=== PATIENT | male | born 1975 | race Caucasian/White ===

== ENCOUNTER 2017-01-28 15:25 | Emergency (ER) | payer OTHER ==
--- NOTE | 2017-01-28 17:59 | ED CLINICAL REPORT ---
Clinical Report - Physicians/Mid Levels [facility] [address] [place] [address] 01/28/2017 15:27 Patient: DANTE PLAZA Time Seen: 15:52. Arrived- By private vehicle. Historian- patient. HISTORY OF PRESENT ILLNESS Chief Complaint: RECTAL BLEEDING. This started today, has been mild and is now gone. The patient has not had dark stools, rectal pain or hard stools. He has had rectal bleeding (patient states that he was out in the [place] and had a bowel movement outside. Patient states he was concerned because he noticed that there was blood on the outside of the stool particularly on the top of the pile. He states this is never happened to him before; he did not have any painand has not been constipatedlately. He has no known history of hemorrhoids or diverticulitis. He has had no difficulty with his bowel movements recently.). No constipation, nausea, vomiting, diarrhea or abdominal pain. No recent travel. No known contact with a sick individual. Similar symptoms previously: None. Recent medical care: Not recently seen/assessed. REVIEW OF SYSTEMS No dizziness, fainting episodes, weakness, fever or blurred vision. No sore throat, epistaxis, cough, difficulty breathing or chest pain. No hematuria, skin rash, enlarged lymph nodes, chills or joint pain. No complaint of rectal foreign body. All systems otherwise negative, except as recorded above. PAST HISTORY Problems: Gastroesophageal Reflux Disease. Peptic Ulcer Disease. Arthritis. Additional Surgeries: ACL knee. Chest tube. Medications: Ibuprofen Oral. Omeprazole Oral. Allergies: Codeine. SOCIAL HISTORY Former smoker. Occasional alcohol use. No drug use. ADDITIONAL NOTES The nursing notes have been reviewed. PHYSICAL EXAM Vital Signs: 01/28/2017 15:44 BP: 134/89. HR: 84. RR: 17. O2 saturation: 96%. Temp: 98.5 F. Have been reviewed. Appearance: Alert. Oriented X3. No acute distress. Eyes: Pupils equal, round and reactive to light. Eyes normal inspection. ENT: Nose normal. Neck: Normal inspection. Neck supple. CVS: Normal heart rate and rhythm. Heart sounds normal. Pulses normal. Respiratory: No respiratory distress. Breath sounds normal. Abdomen: Soft and nontender. Back: Normal inspection. No CVA tenderness. Rectal: Trace heme-positive stool; hemoccult quality control microbiologist check passed. (POC test reference range: negative). No blood visibly present. Rectal exam nontender. Stool color normal. Skin: Skin warm and dry. Normal skin color. No rash. Normal skin turgor. Extremities: Extremities exhibit normal ROM. No lower extremity edema. Neuro: (Grossly intact.). LABS, X-RAYS, AND EKG Pulse Oximetry: 01/28/2017 15:44 O2 saturation: 96%. (FIO2 - room air). Interpretation: normal. PROGRESS AND PROCEDURES Course of Care: I did discuss with the patient that what he is describing sounds like a very distal, lower GI bleed. The blood is on the outside of the stool and is bright red blood which indicate that the bleeding is occurring at the very end of the GI tract. Patient has not had any pain in his anal area, which indicates that most likely the bleeding is due to an internal hemorrhoid. I did discuss with the patient that given that he has had only one episode, it would be acceptable to wait and see if he has any further episodes. If this becomes a recurrent problem, then patient may need either flexible sigmoidoscopy or colonoscopy. However, at this point, the patient is hemodynamically stable, there is no evidence of heavy GI bleeding, and patient is very unlikely to have lost a significant amount of blood. As such, no further diagnostic testing is indicated in the emergency department. Patient and are comfortable with this plan. Patient has a 30 spoke with his primary care physician about getting an endoscopy for possible peptic ulcer and the states she will also speak to the primary care physician about scheduling a colonoscopy. Patient and spouse counseled in person regarding the patient's stable condition, diagnosis and need for follow-up. Concerns were addressed. Old medical records reviewed. Disposition: Discharged. Condition: stable. CLINICAL IMPRESSION Rectal bleed consisting of bright red blood from internal hemorrhoids. INSTRUCTIONS Drink plenty of fluids. (There is no sign of a serious cause of your rectal bleeding. This may be a one-time episode, or you may have further episodes. If you do have further episodes, you should follow up for referral to a GI specialist, who can further evaluate you with colonoscopy.). Warnings: Further evaluation is necessary. GENERAL WARNINGS: Return or contact your physician immediately if your condition worsens or changes unexpectedly, if not improving as expected, or if other problems arise. Follow-up: Follow up with your doctor. Call for the next available appointment. Reason for referral: Follow up ER visit for GI bleeding. Understanding of the discharge instructions verbalized by patient and family. (Electronically signed by Shyla Almazan MD 01/28/2017 21:20)
--- NOTE | 2017-01-28 17:59 | ED NURSING NOTES ---
Clinical Report - Nurses [facility] [address] [place] [address] 01/28/2017 15:27 Patient: DANTE PLAZA TRIAGE Triage time 15:38 Jan 28 2017. Acuity: LEVEL 3. Chief Complaint: ABDOMINAL PAIN. 15:44 01/28/17. Alert. No acute distress. SEPSIS SCREEN: Sepsis Screen. Negative (no infection suspected/documented). FANTA COMA SCORE: [place] Coma Scale: 15- eyes open spontaneously (4); best verbal response- oriented x 4 (5); best motor response- obeys commands (6). --15:44 Jasmyne Lucas 15:44 01/28/17. BP: 134/89. HR: 84. RR: 17. O2 saturation: 96%. Temp: 98.5 F. Pain level now 310. --15:44 Jasmyne Lucas. Weight: 97.5 kg stated. Height/Length: 72 inches Per Patient. BMI: 29.2. --15:44 Jasmyne Lucas. Medications Omeprazole Oral. --15:39 Jasmyne Lucas Ibuprofen Oral. --15:40 Jasmyne Lucas. Medication/allergy information source: the patient. --15:44 Jasmyne Lucas. Allergies Codeine. --15:40 Jasmyne Lucas. History Arrived by private vehicle. Historian: patient. Accompanied by family. No primary care physician. This started today. 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 ( Pt reports having a bowel movement that had blood on top of it. Has a stomach ulcer and pain in the same area as when it was diagnosed.). He has had abdominal pain. No nausea, vomiting, diarrhea, constipation or fever. PAST MEDICAL HX: Gastroesophageal reflux disease. Peptic ulcer disease. No history of diabetes mellitus. No history of gallstones. Immunizations: up-to-date. SOCIAL HX: Former smoker, end date 2015 (vape). Occasional alcohol use. No drug use. No recent travel. No known contact with a sick individual. FALL RISK ASSESSMENT: Fall risk assessment completed. No fall risk identified. NUTRITIONAL RISK ASSESSMENT: The nutritional risk assessment revealed no deficiencies. FUNCTIONAL ASSESSMENT: Functional assessment: no impairments noted. LEARNING NEEDS ASSESSMENT: The learning needs assessment revealed no barriers. SKIN INTEGRITY ASSESSMENT: Skin integrity risk assessment completed. No skin integrity risk identified. --15:44 Jasmyne Lucas. PROBLEMS: Stomach ulcer. Arthritis. --15:41 Jasmyne Lucas. ADDITIONAL SURGERIES: ACL knee. Chest tube. --15:41 Jasmyne Lucas. Assessment The patient states feels the same. --15:44 Jasmyne Lucas. PHYSICAL ASSESSMENT 15:44 01/28/17. Ambulatory to room. GENERAL / NEURO / PSYCH: Alert. Oriented X 4. Appears in no acute distress. HEENT: Mucous membranes are pink. RESPIRATORY: Respirations not labored. CVS: Capillary refill less than 2 seconds. GI / : Abdomen soft and nontender. Bloody stool. SKIN: Skin is warm and dry. --15:44 Jasmyne Lucas. NURSING PROGRESS NOTES 15:45 01/28/17. The plan of care for this patient has been created. Head of bed elevated. Reassurance given. Two patient identifiers checked. Call light placed in reach. Patient placed in chair. Brakes of chair on. Patient ready for evaluation- chart flagged and ED physician and PA notified. --15:45 Jasmyne Lucas 16:06 01/28/2017 Site #1 started via IV in the right antecubital space with an 20g angiocath, with aseptic technique and good blood return; one attempt. Blood drawn: rainbow set. Labeled in the presence of the patient and sent to the lab. Saline lock flushed with 10 mL saline. --16:06 Magaly Yanes R.N. 16:06 01/28/17. ( Warm blanket applied.). --16:06 Magaly Yanes R.N. 16:01/28/17. Care transferred and report given (NANETTE Ziegler). --16:11 Jasmyne Lucas. DISPOSITION / DISCHARGE 18:17 01/28/2017 Site #1 removed upon discharge. Bandage applied. --18:19 Live Dsouza R.N. Departure time: 1816. Condition at departure: unchanged and stable. No learning barriers present. Discharge instructions provided and reviewed with the patient. Patient verbalized understanding. Written instructions provided in Cameroonian. The patient was discharged by the physician. He was discharged home and accompanied by spouse. He left the Emergency Department ambulatory and via private vehicle. Spouse driving. --18:22 Live Dsouza R.N. 18:16 01/28/17. BP: 132/97. HR: 84. RR: 16. O2 saturation: 99% on room air. Temp: 98.5 F (oral). Pain level now: 10/27. --18:22 Live Dsouza R.N. Locked/Released at 01/28/2017 20:09 by Karlie Littlejohn R.N.
--- NOTE | 2017-01-28 17:59 | ED ORDER SUMMARY ---
..... Patient: DANTE PLAZA OrderSheet [facility] VisitID: [id number] [address] [place] [address] 41y, M Registration Date/Time: 01/28/2017 ORDER SHEET Weight: 97.5 kg (stated) Allergies: Codeine GENERAL ORDERS: MEDICATION ORDERS: IV FLUIDS: IV Saline Lock (16:06 01/28/2017 Joselyn Hebert verbal order read back to Tiffany SMALLWOOD) (16:06 Joselyn R.NYelena) ORDER SHEET NOTES: [Electronically signed by Karlie Littlejonh R.N. (20:09 01/28/2017)] [Electronically signed by Shyla Almazan MD (21:20 01/28/2017)] [Electronically locked/signed by Karlie Littlejohn R.N. (20:01/28/2017)]
--- NOTE | 2017-01-28 17:59 | ED ORDER SUMMARY ---
..... Patient: DANTE PLAZA OrderSheet [facility] VisitID: [id number] [address] [place] [address] 41y, M Registration Date/Time: 01/28/2017 ORDER SHEET Weight: 97.5 kg (stated) Allergies: Codeine GENERAL ORDERS: MEDICATION ORDERS: IV FLUIDS: IV Saline Lock (16:06 01/28/2017 Joselyn Hebert verbal order read back to Tiffany SMALLWOOD) (16:06 Joselyn R.NYelena) ORDER SHEET NOTES: [Electronically signed by Karlie Littlejohn R.N. (20:09 01/28/2017)] [Electronically signed by Shyla Almazan MD (21:20 01/28/2017)] [Electronically locked/signed by Karlie Littlejohn R.N. (20:01/28/2017)]
--- NOTE | 2017-01-28 17:59 | ED NURSING NOTES ---
Clinical Report - Nurses [facility] [address] [place] [address] 01/28/2017 15:27 Patient: DANTE PLAZA TRIAGE Triage time 15:38 Jan 28 2017. Acuity: LEVEL 3. Chief Complaint: ABDOMINAL PAIN. 15:44 01/28/17. Alert. No acute distress. SEPSIS SCREEN: Sepsis Screen. Negative (no infection suspected/documented). FANTA COMA SCORE: [place] Coma Scale: 15- eyes open spontaneously (4); best verbal response- oriented x 4 (5); best motor response- obeys commands (6). --15:44 Jasmyne Lucas 15:44 01/28/17. BP: 134/89. HR: 84. RR: 17. O2 saturation: 96%. Temp: 98.5 F. Pain level now 310. --15:44 Jasmyne Lucas. Weight: 97.5 kg stated. Height/Length: 72 inches Per Patient. BMI: 29.2. --15:44 Jasmyne Lucas. Medications Omeprazole Oral. --15:39 Jasmyne Lucas Ibuprofen Oral. --15:40 Jasmyne Lucas. Medication/allergy information source: the patient. --15:44 Jasmyne Lucas. Allergies Codeine. --15:40 Jasmyne Lucas. History Arrived by private vehicle. Historian: patient. Accompanied by family. No primary care physician. This started today. 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 ( Pt reports having a bowel movement that had blood on top of it. Has a stomach ulcer and pain in the same area as when it was diagnosed.). He has had abdominal pain. No nausea, vomiting, diarrhea, constipation or fever. PAST MEDICAL HX: Gastroesophageal reflux disease. Peptic ulcer disease. No history of diabetes mellitus. No history of gallstones. Immunizations: up-to-date. SOCIAL HX: Former smoker, end date 2015 (vape). Occasional alcohol use. No drug use. No recent travel. No known contact with a sick individual. FALL RISK ASSESSMENT: Fall risk assessment completed. No fall risk identified. NUTRITIONAL RISK ASSESSMENT: The nutritional risk assessment revealed no deficiencies. FUNCTIONAL ASSESSMENT: Functional assessment: no impairments noted. LEARNING NEEDS ASSESSMENT: The learning needs assessment revealed no barriers. SKIN INTEGRITY ASSESSMENT: Skin integrity risk assessment completed. No skin integrity risk identified. --15:44 Jasmyne Lucas. PROBLEMS: Stomach ulcer. Arthritis. --15:41 Jasmyne Lucas. ADDITIONAL SURGERIES: ACL knee. Chest tube. --15:41 Jasmyne Lucas. Assessment The patient states feels the same. --15:44 Jasmyne Lucas. PHYSICAL ASSESSMENT 15:44 01/28/17. Ambulatory to room. GENERAL / NEURO / PSYCH: Alert. Oriented X 4. Appears in no acute distress. HEENT: Mucous membranes are pink. RESPIRATORY: Respirations not labored. CVS: Capillary refill less than 2 seconds. GI / : Abdomen soft and nontender. Bloody stool. SKIN: Skin is warm and dry. --15:44 Jasmyne Lucas. NURSING PROGRESS NOTES 15:45 01/28/17. The plan of care for this patient has been created. Head of bed elevated. Reassurance given. Two patient identifiers checked. Call light placed in reach. Patient placed in chair. Brakes of chair on. Patient ready for evaluation- chart flagged and ED physician and PA notified. --15:45 Jasmyne Lucas 16:06 01/28/2017 Site #1 started via IV in the right antecubital space with an 20g angiocath, with aseptic technique and good blood return; one attempt. Blood drawn: rainbow set. Labeled in the presence of the patient and sent to the lab. Saline lock flushed with 10 mL saline. --16:06 Magaly Yanes R.N. 16:06 01/28/17. ( Warm blanket applied.). --16:06 Magaly Yanes R.N. 16:01/28/17. Care transferred and report given (NANETTE Ziegler). --16:11 Jasmyne Lucas. DISPOSITION / DISCHARGE 18:17 01/28/2017 Site #1 removed upon discharge. Bandage applied. --18:19 Live Dsouza R.N. Departure time: 1816. Condition at departure: unchanged and stable. No learning barriers present. Discharge instructions provided and reviewed with the patient. Patient verbalized understanding. Written instructions provided in Togolese. The patient was discharged by the physician. He was discharged home and accompanied by spouse. He left the Emergency Department ambulatory and via private vehicle. Spouse driving. --18:22 Live Dsouza R.N. 18:16 01/28/17. BP: 132/97. HR: 84. RR: 16. O2 saturation: 99% on room air. Temp: 98.5 F (oral). Pain level now: 10/27. --18:22 Live Dsouza R.N. Locked/Released at 01/28/2017 20:09 by Karlie Littlejohn R.N.
--- NOTE | 2017-01-28 21:20 | ED MAR SUMMARY ---
..... Medication Administration Record [facility] [address] [place], [place] [id number] Patient: DANTE PLAZA Visit ID: [id number] 41y, M Weight: 97.5 kg Height/Length: 72 in BMI: 29.2 ALLERGIES: Codeine
--- NOTE | 2017-01-28 21:20 | ED DISCHARGE INSTRUCTIONS ---
Patient: DANTE PLAZA General Instructions [facility] VisitID: [id number] [place] [address] 41y, M Registration Date/Time: 01/28/2017 Rectal bleed consisting of bright red blood from internal hemorrhoids. INSTRUCTIONS Drink plenty of fluids. (There is no sign of a serious cause of your rectal bleeding. This may be a one-time episode, or you may have further episodes. If you do have further episodes, you should follow up for referral to a GI specialist, who can further evaluate you with colonoscopy.). Warnings: Further evaluation is necessary. GENERAL WARNINGS: Return or contact your physician immediately if your condition worsens or changes unexpectedly, if not improving as expected, or if other problems arise. Follow-up: Follow up with your doctor. Call for the next available appointment. Reason for referral: Follow up ER visit for GI bleeding. Understanding of the discharge instructions verbalized by patient and family. ADDITIONAL INFORMATION Rectal Bleeding (Stable) Your exam today shows signs of blood in the stool. This is called rectal bleeding, because the blood passes through the rectum. However, the blood may not be coming from the rectum. Blood in the stool may be red or black in color. Red blood in the stool usually comes from the lower gastro-intestinal (GI) tract. This may be due to diverticulosis, polyps, colon inflammation or infection, anal fissure or hemorrhoids. In persons over 50 tumors and cancer of the intestinal tract may first show up as red blood in the stool. Upper GI bleeding causes the stool to turn black. This may occur with bleeding from the esophagus, stomach, duodenum or small intestine. Very small amounts of GI bleeding may not be visible and can only be discovered on a chemical test of the stool. You have not lost a large amount of blood and your condition appears stable at this time. It is very important to have a follow-up exam to determine the exact cause of your bleeding. Home Care: 1) You may resume normal activity as long as you feel well. 2) Avoid aspirin and anti-inflammatory drugs such as ibuprofen (Advil, Motrin) and naproxen (Aleve and Naprosyn). You may use acetaminophen (Tylenol) for pain. [ NOTE : If you have chronic liver disease, talk with your doctor before using acetaminophen.] 3) Avoid alcohol. Follow Up with your doctor or as advised by our medical staff. It is very important that you have further tests done to find the cause of your bleeding. Get Prompt Medical Attention if any of the following occur: -- Large amount of rectal bleeding (more than 1 cup of blood in 24 hours) -- Increasing abdominal pain -- Weakness, dizziness or fainting -- Vomiting blood (red or black color) You have been given the following additional information: Rectal Bleed, Stable (Electronically signed by Shyla Almazan MD 01/28/2017 21:20)
--- NOTE | 2017-01-28 21:20 | ED MED RECONCILIATION SUMMARY ---
Patient: DANTE PLAZA Medication Reconciliation Report [facility] VisitID: [id number] [address] [place] [address] 41y, M Registration Date/Time: 01/28/2017 Weight: 97.5 kg Height/Length: 72 in. BMI: 29.2 ALLERGIES: Codeine The patient's Home Medications are listed below: THE FOLLOWING MEDICATIONS NEED TO BE RECONCILED: Ibuprofen Oral Omeprazole Oral The source(s) of the original Home Medication information: patient The following Medications were given to the patient in the Emergency Department: None. The following Medications were prescribed to the patient: None.
--- NOTE | 2017-01-28 21:20 | ED MAR SUMMARY ---
..... Medication Administration Record [facility] [address] [place], [place] [id number] Patient: DANTE PLAZA Visit ID: [id number] 41y, M Weight: 97.5 kg Height/Length: 72 in BMI: 29.2 ALLERGIES: Codeine
--- NOTE | 2017-01-28 21:20 | ED MED RECONCILIATION SUMMARY ---
Patient: DANTE PLAZA Medication Reconciliation Report [facility] VisitID: [id number] [address] [place] [address] 41y, M Registration Date/Time: 01/28/2017 Weight: 97.5 kg Height/Length: 72 in. BMI: 29.2 ALLERGIES: Codeine The patient's Home Medications are listed below: THE FOLLOWING MEDICATIONS NEED TO BE RECONCILED: Ibuprofen Oral Omeprazole Oral The source(s) of the original Home Medication information: patient The following Medications were given to the patient in the Emergency Department: None. The following Medications were prescribed to the patient: None.
== END 2017-01-28 18:17 | disposition home or self-care (01) ==
LOC: ED SRH 15:25
DX: K64.8 Other hemorrhoids (principal); K62.5 Hemorrhage of anus and rectum; K21.9 Gastro-esophageal reflux disease without esophagitis; Z79.1 Long term (current) use of non-steroidal anti-inflammatories (NSAID); Z79.899 Other long term (current) drug therapy; Z88.5 Allergy status to narcotic agent; Z87.891 Personal history of nicotine dependence